=== PATIENT | female | born 1955 | race Caucasian/White ===

== ENCOUNTER 2016-10-16 08:04 | Inpatient (IN) | payer MEDICARE, BC ==
[2016-10-16] MEDS ORDERED: Metoclopramide IV* 5 MG/ML 2 ML VIAL IV ONE (08:50)
[2016-10-16] MEDS ORDERED: Morphine INJ* 4 MG/ML 1 ML CARPUJECT IV ONE (08:50)
[2016-10-16] MEDS ORDERED: NS 0.9% 1000 ML* 1,000 ML IV SCH ×2 (09:00→14:30)
[2016-10-16 09:15] LABS: Hematocrit 44 % (35-47); Hemoglobin 14.9 g/dl (12.0-16.0); Mean Corpuscular HGB Conc 34 g/dl (31-36); Mean Corpuscular Hemoglobin 32 pg (27-31); Mean Corpuscular Volume 94 fL (80-97); Mean Platelet Volume 7 um3 (7.4-10.4); Red Blood Count 4.72 10^6/ul (4.0-5.4); Red Cell Distribution Width 14 % (10.5-15)
--- NOTE | 2016-10-16 09:18 | RAD ---
INDICATION: Right splinting chest pain. COMPARISON: Comparison is made with a prior chest x-ray study from October 28, 2009. TECHNIQUE: A portable view of the chest was obtained. FINDINGS: Cardiac and mediastinal contours appear to be within normal limits. The lungs are clear. No pleural effusion or pneumothorax is seen. IMPRESSION: NO EVIDENCE FOR ACUTE DISEASE.
[2016-10-16 09:26] LABS: ALT 13 U/L (7-52); AST 16 U/L (13-39); Albumin 4.2 g/dL (3.2-5.2); Alkaline Phosphatase 73 U/L (34-104); Anion Gap 9 mmol/L (2-11); BUN/Creatinine Ratio 12.5 (8-20); Blood Urea Nitrogen 8 mg/dL (6-24); C Reactive Protein 82.64 mg/L (< 5.00); CO2 Carbon Dioxide 25 mmol/L (22-32); Calcium 9.5 mg/dL (8.6-10.3); Chloride 103 mmol/L (101-111); Creatine Kinase 77 U/L (10-223); EGFR African American 121.7 (>60); EGFR Non-African American 94.7 (>60); Globulin 3.2 g/dL (2-4); Glucose 121 mg/dL (70-100); Lipase < 10 U/L (11.0-82.0); Magnesium 2.2 mg/dL (1.9-2.7); Potassium 3.7 mmol/L (3.5-5.0); Sodium 137 mmol/L (133-145); Total Protein 7.4 g/dL (6.4-8.9)
[2016-10-16 09:29] LABS: Troponin I 0.02 ng/mL (<0.04)
[2016-10-16 09:39] LABS: TSH (Thyroid Stimulating Horm) 0.65 mcIU/mL (0.34-5.60)
[2016-10-16] MEDS ORDERED: Iohexol 350* (CONTRAST) 500 ML MDV IV ONE (10:12)
[2016-10-16 10:18] LABS: Urine Bacteria Absent (Absent)
[2016-10-16 10:19] LABS: Urine Bilirubin Negative (Negative); Urine Glucose Negative (Negative); Urine Nitrite Negative (Negative)
--- NOTE | 2016-10-16 10:32 | RAD ---
INDICATION: Right upper quadrant pain. COMPARISON: Comparison is made with a prior CT of the abdomen and pelvis from August 15, 2013. TECHNIQUE: Multiple real-time images of the right upper quadrant were obtained. FINDINGS: No gallstones are seen although there is a small area of increased echogenicity present within the gallbladder consistent with a polyp or sludge measuring approximately 5 mm in size. No gallbladder wall thickening or pericholecystic fluid is seen. No intrahepatic ductal distention is seen. There is distention of the common bile duct which measures approximately 0.9 cm in diameter. The liver is normal in size without significant focal abnormality. The pancreas is partially obscured by overlying bowel gas. The right kidney is normal in size without evidence for hydronephrosis. IMPRESSION: 1. PROBABLE GALLBLADDER POLYP LESS LIKELY ADHERENT SLUDGE. 2. DISTENTION OF THE COMMON BILE DUCT.
[2016-10-16] MEDS ORDERED: HYDROmorphone INJ* 1 MG/ML CARPUJECT SYRINGE IV ONE (10:57)
--- NOTE | 2016-10-16 11:00 | RAD ---
INDICATION: Right lower chest and right upper quadrant pain. COMPARISON: Comparison is made with a prior CT of the chest from October 09, 2004, prior CT of the abdomen and pelvis from August 15, 2013 and prior chest x-ray study from October 16, 2016. TECHNIQUE: A CT angiogram of the chest and a CT of the abdomen and pelvis was performed with intravenous contrast following intravenous injection of 63 ml of Omnipaque 350 nonionic contrast. Contiguous axial sections were obtained from the lung apices through the symphysis pubis. Images were reconstructed in the coronal and sagittal planes. FINDINGS: CT ANGIOGRAM OF THE CHEST: There is relatively homogeneous opacification of the pulmonary arteries. No intraluminal filling defect or pulmonary embolism is seen. The heart is within normal limits in size. No pericardial effusion is present. The thoracic aorta is normal in caliber and demonstrates homogeneous contrast opacification without evidence for dissection. No significant enlarged mediastinal or hilar lymph nodes are seen. There is moderate centrilobular emphysematous change. There is a small infiltrate present in the left upper lobe toward the lung base and a minimal right middle lobe infiltrate. There are small bilateral pulmonary nodules which are most prominent in both lower lobes measuring up to 5 mm in size which are unchanged from the prior CT of the chest. No pleural effusion or pneumothorax is seen. CT OF THE ABDOMEN AND PELVIS: The liver and spleen are normal in size without significant focal abnormality. No calcified gallstones are seen. There appears to be fatty infiltration of the pancreas which appears similar to the prior study. The kidneys and adrenal glands are normal in size. No hydronephrosis is seen. There is suggestion of a small 0.2 cm calculus in the lower pole of the left kidney. There is also a small 1.0 cm cyst in the lower pole of the left kidney. No hydronephrosis is seen. The abdominal aorta is normal in caliber. There is mild calcific plaque present. No significant enlarged retroperitoneal lymph nodes are seen. The stomach, small and large bowel appear nondistended. There is a small hiatal hernia present. The appendix appears nondistended although incompletely visualized on this study. There is moderate descending and sigmoid diverticulosis without evidence for diverticulitis. There is a small periumbilical hernia containing fat. The uterus is retroverted and normal in size. No free intraperitoneal air or fluid is seen. No significant focal osseous abnormality is seen. IMPRESSION: 1. NO EVIDENCE FOR PULMONARY EMBOLISM. 2. MINIMAL RIGHT MIDDLE LOBE AND LEFT UPPER LOBE INFILTRATES SUGGESTIVE OF ATELECTASIS LESS LIKELY PNEUMONIA. 3. MULTIPLE STABLE PULMONARY NODULES. 4. MODERATE CENTRILOBULAR EMPHYSEMATOUS CHANGE. 5. NO EVIDENCE FOR ACUTE FINDING IN THE ABDOMEN OR CAUSE FOR THE PATIENT'S ABDOMINAL PAIN IS SEEN. 6. SMALL NONOBSTRUCTING LEFT RENAL CALCULUS.
[2016-10-16] MEDS ORDERED: cefTRIAXone(*) 1 GM in NS 0.9% 50 ML* 50 ML IVPB ONE (11:55)
[2016-10-16] MEDS ORDERED: Albuterol/Ipratropium NEB.SOL* Albuterol 2.5 MG/Ipratropium 0.5 MG 3 ML INH ONE (11:55)
[2016-10-16] MEDS ORDERED: NS 0.9% 1000 ML* 1,000 ML IV ONE (11:56)
[2016-10-16] MEDS ORDERED: Levofloxacin 750 MG IVPREMIX(* 750 MG/150 ML BAG IVPB ONE (12:09)
[2016-10-16] MEDS ORDERED: cefTRIAXone VIAL(*) 1,000 MG in NS 0.9% 50 ML* 50 ML IVPB ONE (13:00)
[2016-10-16] MEDS ORDERED: Acetaminophen TAB* 325 MG ONE (13:49)
[2016-10-16] MEDS ORDERED: Acetaminophen TAB* 325 MG PO ONE (13:50)
--- NOTE | 2016-10-16 14:18 | ED ---
I, Kp,Otilio, scribed for Satniago Johnson MD on 10/16/16 at 0857 . HPI Chest Pain - HPI Summary HPI Summary: This 61 y/o female presents to ED for acute right sided chest pain since 1900 PM yesterday. Pain radiates to back and RUQ and worse with deep breath. Pt reports nausea, dry heaves, and STARR this morning. She also reports mild dyspnea due to pain with deep breath. PMHx includes HLD, HTN, RA, known migraine, vericose vein, and recent URI that pt states she "got over it". Pt denies any hx of cholecystectomy. 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 - History of Current Complaint Chief Complaint: EDChestPainROMI Hx Obtained From: Patient, Medical Records Timing: Constant Pain Intensity: 8 Pain Scale Used: 0-10 Numeric Chest Pain Location: Right Anterior Chest Pain Radiates: Yes Chest Pain Radiates To:: Back, Other - RUQ Character: Dull/Aching Aggravating Factor(s): Deep Breaths Alleviating Factor(s): Nothing Associated Signs and Symptoms: Positive: Chest Pain, Headaches, Nausea, Other: - dry heave - Allergy/Home Medications Allergies/Adverse Reactions: Allergies Allergy/AdvReac Type Severity Reaction Status Date / Time Ondansetron [From Zofran] Allergy Severe Headache Verified 10/07/16 09:21 Sulfa Antibiotics Allergy Severe Rash And Verified 10/07/16 09:21 Itching Tramadol AdvReac Severe SEIZURES Verified 10/07/16 09:21 Hydrochlorothiazide AdvReac Intermediate Hives Verified 10/07/16 09:21 PMH/Surg Hx/FS Hx/Imm Hx Endocrine/Hematology History: Denies: Hx Diabetes Cardiovascular History: Reports: Hx Hypertension, Other Cardiovascular Problems/ Disorders - vericose veins Denies: Hx Pacemaker/ICD Respiratory History: Reports: Hx Chronic Obstructive Pulmonary Disease (COPD), Other Respiratory Problems/Disorders - early COPD History: Reports: Hx Kidney Stones - in left kidney Denies: Hx Renal Disease Musculoskeletal History: Reports: Hx Arthritis - RA, Hx Rheumatoid Arthritis - 10+ YEARS, Hx Back Problems - right side low back pain on occassion with flare , Hx Bursitis, Hx Fibromyalgia, Hx Orthopedic Injury, Hx Osteoporosis, Other Musculoskeletal History - RA, right hip cortisone injection 02/28/15 Sensory History: Reports: Hx Contacts or Glasses Denies: Hx Hearing Aid Opthamlomology History: Reports: Hx Contacts or Glasses Neurological History: Reports: Hx Headaches, Hx Migraine, Hx Seizures - one r/t reaction to tramadol, Other Neuro Impairments/Disorders - FIBROMYALGIA Psychiatric History: Denies: Hx Panic Disorder - Surgical History Surgery Procedure, Year, and Place: RIGHT HIP REPLACEMENT DUE RA. Lt KNEE ARTHROSCOPE. VARICOSE VEIN right leg. kidney stone removal. tubal ligation. Cataract removed right eye 07/2016 Hx Anesthesia Reactions: No Infectious Disease History: No Infectious Disease History: Denies: Traveled Outside the [place] in Last 30 Days - Family History Known Family History: Positive: Other - Colon CA positive to mother and sister - Social History Alcohol Use: None Hx Substance Use: No Substance Use Type: Reports: None Substance Use Comment - Amount & Last Used: percocet Hx Tobacco Use: Yes Smoking Status (MU): Former Smoker Type: Cigarettes Amount Used/How Often: 2 ppd Length of Time of Smoking/Using Tobacco: 35 years Have You Smoked in the Last Year: No Review of Systems Negative: Fever Positive: Chest Pain - right sided Negative: Anxious, Depressed All Other Systems Reviewed And Are Negative: Yes Physical Exam Triage Information Reviewed: Yes Vital Signs On Initial Exam: Initial Vitals Temp Pulse Resp BP Pulse Ox 98.3 F 90 17 153/84 100 10/16/16 08:05 10/16/16 08:05 10/16/16 08:05 10/16/16 08:05 10/16/16 08:05 Vital Signs Reviewed: Yes Appearance: Positive: Pain Distress - moderate Skin: Positive: Warm, Dry Head/Face: Positive: Normal Head/Face Inspection Eyes: Positive: EOMI, HERO Respiratory/Lung Sounds: Positive: Clear to Auscultation - bilat, Breath Sounds Present Cardiovascular: Positive: RRR, Pulses are Symmetrical in both Upper and Lower Extremities Abdomen Description: Positive: Other: - RUQ tenderness Bowel Sounds: Positive: Hypoactive Musculoskeletal: Positive: Strength/ROM Intact Neurological: Positive: Sensory/Motor Intact, Alert, Oriented to Person Place, Time Psychiatric: Positive: Affect/Mood Appropriate AVPU Assessment: Alert - [place] Coma Scale Coma Scale Total: 15 Diagnostics - Vital Signs Vital Signs Temp Pulse Resp BP Pulse Ox 10/16/16 08:43 99.1 F 10/16/16 08:05 98.3 F 90 17 153/84 100 - Laboratory Lab Results: Lab Results 10/16/16 10/16/16 10/16/16 Range/Units 08:20 08:20 08:20 WBC 11.0 H (3.5-10.8) 10^3/ul RBC 4.72 (4.0-5.4) 10^6/ul Hgb 14.9 (12.0-16.0) g/dl Hct 44 (35-47) % MCV 94 (80-97) fL MCH 32 H (27-31) pg MCHC 34 (31-36) g/dl RDW 14 (10.5-15) % Plt Count 364 (150-450) 10^3/ul MPV 7 L (7.4-10.4) um3 Neut % (Auto) 84.9 H (38-83) % Lymph % (Auto) 7.9 L (25-47) % Logan % (Auto) 7.0 (1-9) % Eos % (Auto) 0 (0-6) % Baso % (Auto) 0.2 (0-2) % Absolute Neuts (auto) 9.3 H (1.5-7.7) 10^3/ul Absolute Lymphs (auto) 0.9 L (1.0-4.8) 10^3/ul Absolute Monos (auto) 0.8 (0-0.8) 10^3/ul Absolute Eos (auto) 0 (0-0.6) 10^3/ul Absolute Basos (auto) 0 (0-0.2) 10^3/ul Absolute Nucleated RBC 0 10^3/ul Nucleated RBC % 0 INR (Anticoag Therapy) 0.96 (0.89-1.11) APTT 34.2 (26.0-36.3) seconds Sodium 137 (133-145) mmol/L Potassium 3.7 (3.5-5.0) mmol/L Chloride 103 (101-111) mmol/L Carbon Dioxide 25 (22-32) mmol/L Anion Gap 9 (2-11) mmol/L BUN 8 (6-24) mg/dL Creatinine 0.64 (0.51-0.95) mg/dL Est GFR ( Amer) 121.7 (>60) Est GFR (Non-Af Amer) 94.7 (>60) BUN/Creatinine Ratio 12.5 (8-20) Glucose 121 H (70-100) mg/dL Lactic Acid (0.5-2.0) mmol/L Calcium 9.5 (8.6-10.3) mg/dL Magnesium 2.2 (1.9-2.7) mg/dL Total Bilirubin 1.00 (0.2-1.0) mg/dL AST 16 (13-39) U/L ALT 13 (7-52) U/L Alkaline Phosphatase 73 (34-104) U/L Total Creatine Kinase 77 (10-223) U/L CK-MB (CK-2) 2.5 (0.6-6.3) ng/mL Troponin I 0.02 (<0.04) ng/mL C-Reactive Protein 82.64 H (< 5.00) mg/L B-Natriuretic Peptide ( - 100) pg/mL Total Protein 7.4 (6.4-8.9) g/dL Albumin 4.2 (3.2-5.2) g/dL Globulin 3.2 (2-4) g/dL Albumin/Globulin Ratio 1.3 (1-3) Lipase < 10 L (11.0-82.0) U/L TSH 0.65 (0.34-5.60) mcIU/mL Urine Color Urine Appearance Urine pH (5-9) Ur Specific Stanton (1.010-1.030) Urine Protein (Negative) Urine Ketones (Negative) Urine Blood (Negative) Urine Nitrate (Negative) Urine Bilirubin (Negative) Urine Urobilinogen (Negative) Ur Leukocyte Esterase (Negative) Urine WBC (Auto) (Absent) Urine RBC (Auto) (Absent) Urine Bacteria (Absent) Urine Glucose (Negative) Urine Ascorbic Acid 10/16/16 10/16/16 10/16/16 Range/Units 08:20 08:20 10:05 WBC (3.5-10.8) 10^3/ul RBC (4.0-5.4) 10^6/ul Hgb (12.0-16.0) g/dl Hct (35-47) % MCV (80-97) fL MCH (27-31) pg MCHC (31-36) g/dl RDW (10.5-15) % Plt Count (150-450) 10^3/ul MPV (7.4-10.4) um3 Neut % (Auto) (38-83) % Lymph % (Auto) (25-47) % Logan % (Auto) (1-9) % Eos % (Auto) (0-6) % Baso % (Auto) (0-2) % Absolute Neuts (auto) (1.5-7.7) 10^3/ul Absolute Lymphs (auto) (1.0-4.8) 10^3/ul Absolute Monos (auto) (0-0.8) 10^3/ul Absolute Eos (auto) (0-0.6) 10^3/ul Absolute Basos (auto) (0-0.2) 10^3/ul Absolute Nucleated RBC 10^3/ul Nucleated RBC % INR (Anticoag Therapy) (0.89-1.11) APTT (26.0-36.3) seconds Sodium (133-145) mmol/L Potassium (3.5-5.0) mmol/L Chloride (101-111) mmol/L Carbon Dioxide (22-32) mmol/L Anion Gap (2-11) mmol/L BUN (6-24) mg/dL Creatinine (0.51-0.95) mg/dL Est GFR ( Amer) (>60) Est GFR (Non-Af Amer) (>60) BUN/Creatinine Ratio (8-20) Glucose (70-100) mg/dL Lactic Acid 1.0 (0.5-2.0) mmol/L Calcium (8.6-10.3) mg/dL Magnesium (1.9-2.7) mg/dL Total Bilirubin (0.2-1.0) mg/dL AST (13-39) U/L ALT (7-52) U/L Alkaline Phosphatase (34-104) U/L Total Creatine Kinase (10-223) U/L CK-MB (CK-2) (0.6-6.3) ng/mL Troponin I (<0.04) ng/mL C-Reactive Protein (< 5.00) mg/L B-Natriuretic Peptide 97 ( - 100) pg/mL Total Protein (6.4-8.9) g/dL Albumin (3.2-5.2) g/dL Globulin (2-4) g/dL Albumin/Globulin Ratio (1-3) Lipase (11.0-82.0) U/L TSH (0.34-5.60) mcIU/mL Urine Color Straw Urine Appearance Clear Urine pH 8.0 (5-9) Ur Specific Stanton 1.003 L (1.010-1.030) Urine Protein Negative (Negative) Urine Ketones Negative (Negative) Urine Blood Negative (Negative) Urine Nitrate Negative (Negative) Urine Bilirubin Negative (Negative) Urine Urobilinogen Negative (Negative) Ur Leukocyte Esterase Negative (Negative) Urine WBC (Auto) Absent (Absent) Urine RBC (Auto) Trace(0-2/hpf) (Absent) Urine Bacteria Absent (Absent) Urine Glucose Negative (Negative) Urine Ascorbic Acid Not Reportable Result Diagrams: 10/16/16 08:20 10/16/16 08:20 Lab Statement: Any lab studies that have been ordered have been reviewed, and results considered in the medical decision making process. - Radiology CXR Xray Interpretation: No Acute Changes - negative PTX Radiology Interpretation Completed By: ED Physician - CT CTA chest/abd/p CT Interpretation: Positive (See Comments) - 1. NO EVIDENCE FOR PULMONARY EMBOLISM. 2. MINIMAL RIGHT MIDDLE LOBE AND LEFT UPPER LOBE INFILTRATES SUGGESTIVE OF ATELECTASIS LESS LIKELY PNEUMONIA. 3. MULTIPLE STABLE PULMONARY NODULES. 4. MODERATE CENTRILOBULAR EMPHYSEMATOUS CHANGE. 5. NO EVIDENCE FOR ACUTE FINDING IN THE ABDOMEN OR CAUSE FOR THE PATIENT'S ABDOMINAL PAIN IS SEEN. CT Interpretation Completed By: Radiologist - EKG 0810 Cardiac Rate: NL EKG Rhythm: Sinus Rhythm ST Segment: Normal Ectopy: None EKG Interpretation: Flat T at III and aVF - Additional Comments Diagnostic Additional Comments: US Gallbladder -- 1. PROBABLE GALLBLADDER POLYP LESS LIKELY ADHERENT SLUDGE. 2. DISTENTION OF THE COMMON BILE DUCT. Re-Evaluation - Re-Evaluation First Eval Re-Evaluation Time: 10:53 Comment: in room to update pt on imaging results and bloodwork. Second Eval Re-Evaluation Time: 11:59 Comment: in room to update pt on CT imaging results. Third Eval Re-Evaluation Time: 14:07 Change: Worse Comment: Pt complaints of STARR. Chest Pain Course/Dx - Course Assessment/Plan: ADMIT HOSPITALIST STABLE. - Diagnoses Provider Diagnoses: Pneumonia, Chest pain - Provider Notifications Discussed Care Of Patient With: Riley Israel NP (Hospitalist) at 1408 PM Discharge - Discharge Plan Condition: Stable Disposition: ADMITTED TO [facility] Referrals: Miguel Lucas MD [Primary Care Provider] - The documentation as recorded by the Kp woods Soohyun accurately reflects the service I personally performed and the decisions made by me, Santiago Johnson MD.
[2016-10-16] MEDS ORDERED: SUMAtriptan SQ* 6 MG/0.5 ML VIAL SUBCUT ONE (14:27)
[2016-10-16] MEDS ORDERED: Ketorolac INJ* 30 MG/ML 1 ML VIAL IV PUSH ONE (14:27)
[2016-10-16] MEDS ORDERED: PROCHLORPERAZINE INJ 5 MG/ML 2 ML VIAL IV PRN (14:27)
[2016-10-16] MEDS ORDERED: Acetaminophen TAB* 325 MG PO PRN (14:27)
[2016-10-16] MEDS ORDERED: Albuterol 2.5 MG/3 ML NEB.SOL* (0.083%) INH PRN (14:27)
[2016-10-16] MEDS ORDERED: Levofloxacin 750 MG IVPREMIX(* 750 MG/150 ML BAG IVPB SCH (15:00)
[2016-10-16] MEDS: Albuterol/Ipratropium NEB.SOL* Albuterol 2.5 MG/Ipratropium 0.5 MG 3 ML INH SCH ×2 (15:00→19:07)
[2016-10-16] MEDS: oxyCODONE TAB* 5 MG TAB PO PRN ×2 (17:10→22:00)
--- NOTE | 2016-10-16 20:26 | HP ---
ATTENDING PHYSICIAN ADDENDUM NOW INCLUDED ON THIS REPORT HISTORY AND PHYSICAL: DATE OF ADMISSION: 10/16/16 PRIMARY CARE PROVIDER: Dr. Lucas. ATTENDING PHYSICIAN: Dr. Farheen Sarah *(report being dictated by Riley Israel NP) CHIEF COMPLAINT: 1. Chest pain. 2. Cough. HISTORY OF PRESENT ILLNESS: Mrs. Rivas is a 61-year-old female patient. She has a history of migraines, rheumatoid arthritis, hypertension, COPD, and a history of osteoporosis. She comes in today. Over the last 2 weeks, says she has not been feeling well. She started out returning from a dog show about 2 weeks ago. Her and the people that she was with all came down with similar symptoms. She started out with a cough that went to her nose. She said she started getting runny nose. No sore throat and then now she states that it settled down under her chest. She has noticed when she coughs, she feels rattling. It hurts for her to take a deep breath. Today, she could barely take a deep breath. She had pain on the right chest wall that radiated into the front of the chest, worse with taking a deep breath and said that it felt like razors whenever she took a breath, it was very sharp stabbing pain. She said she has been having chills off and on, but no documented fever. She said she had one episode of nausea and vomiting this morning, no abdominal pain and states that she has been feeling shortness of breath because it hurts to breathe. She was concerned because she was not getting any better, so she finally decided to seek care. She came into the ER today. They tried giving her antibiotics and pain medications down here but despite their best effort, she continued to have pain. She was feeling short of breath and because of her history of RA and the fact that she takes medications that are immunocompromising, the hospitalist service was asked to evaluate for admission. She denies having any other symptoms. PAST MEDICAL HISTORY: Significant for: 1. Migraines. 2. Rheumatoid arthritis. 3. Osteoporosis. 4. Hypertension. 5. COPD. PAST SURGICAL HISTORY: 1. She has had cataract extraction. 2. Left knee arthroscopy. 3. Right total hip arthroplasty. 4. Vein stripping. HOME MEDICATIONS: Include: 1. Rituxan 500 mg IV every 180 days. 2. Verapamil 360 mg daily. 3. Imitrex 6 mg subcu daily as needed. 4. Oxycodone 15 mg every 4 hours as needed. 5. Botox 100 mcg injections every 3 months. 6. Plaquenil 20 mg p.o. b.i.d. 7. Vitamin D 5000 units p.o. daily. 8. Fosamax 10 mg p.o. daily. ALLERGIES TO MEDICATIONS: Include ZOFRAN, SULFA, TRAMADOL, and HYDROCHLOROTHIAZIDE. FAMILY HISTORY: Her mother had a PE and colon cancer. Her father had a history of cirrhosis. SOCIAL HISTORY: She is a former smoker. She does not drink alcohol. She is . Surrogate decision maker is her . REVIEW OF SYSTEMS: There is no documented fever, but she does admit to having chills. There is no significant weight change. She denies having any double vision. There is no ear discharge. She denies having any rhinorrhea currently. She does admit to dyspnea particularly with exertion. There is chest pain from my HPI. She does admit to a cough. There is no abdominal pain. There was one episode of nausea and vomiting. No dysuria. No frequency. No loss of consciousness. No pruritus. No skin ulcerations. Review of 14 systems completed, all others negative. PHYSICAL EXAMINATION GENERAL: At this time, Mrs. Rivas is a 61-year-old female patient. She does not appear to be in any acute distress. She is sitting in the ER stretcher. She is awake and she is alert. VITAL SIGNS: Blood pressure 177/97 with a pulse of 91, respirations 18, O2 sat 96%, and a temperature of 99.1. HEENT: Head atraumatic and normocephalic. Eyes: EOMs are intact. Sclera anicteric, not pale. Throat: Oral mucosa appears to be dry. No oropharyngeal erythema. NECK: Supple. LUNGS: She had course rhonchi in the lower lobe. She had equal diaphragmatic expansion. There were no wheezes heard. HEART: Heart sounds S1 and S2. Regular rate and rhythm. No murmurs, rubs, or gallops. ABDOMEN: Soft, it was flat, nontender. Bowel sounds present. EXTREMITIES: Pulses were 2+ throughout. She is able to move all 4 extremities with 5/5 strength. SKIN: Intact. NEUROLOGIC: The patient is awake. She is alert. She is oriented x3. The tongue is midline. Records And Tape Recordings Engineer are equal. She had no gross focal deficits. LABORATORY DATA: The labs today revealed a WBC of 11.0, RBC of 4.72, hemoglobin of 14.9, hematocrit of 44, and platelet count of 364. The INR was 0.96, PTT of 34.2. Sodium was 137, potassium 3.7, chloride 103, bicarb 25, BUN 8 , creatinine 0.64, glucose 121, lactic 1.0, calcium 9.5, mag was 2.2, total bili was 1, AST 16, ALT 13, alk phos 73, CK 77, CK-MB 2.5, troponin 0.02, albumin of 4.2, lipase less than 10, TSH was normal. Urine was obtained, it was negative. She had multiple imaging in the ER. She had gallbladder ultrasound that showed probable gallbladder polyp, less likely adherent sludge, distention of the common bile duct. Chest, abdomen, and pelvis CT showed, impression: No evidence of pulmonary embolism, minimal right middle lobe and left upper lobe infiltrates suggestive of atelectasis, less likely pneumonia, multiple stable pulmonary nodules, moderate central lobular emphysematous change , no evidence for acute finding or cause of the patient's abdominal pain was seen, small nonobstructing left renal calculus. She had an EKG obtained today as well, which showed a normal sinus rhythm. She appeared to have LVH, rate of 88. No ST elevations or T-wave inversions were noted. Old medical records were reviewed. ASSESSMENT AND PLAN: Mr. Rivas is a 61-year-old female patient coming in to the ER today with complaints of cough and chest pain. Evaluation and the CTA did show concern for pneumonia. She will be admitted under observation status for: 1. Pneumonia. I suspect this is the cause for chest pain and she may have pleurisy. The pain is very pruritic. I am going to go ahead and give her a dose of Toradol. In addition to this, we will go ahead and put her on a p.r.n. oxycodone as prescribed, p.r.n. Tylenol for pain. I will put her on Levaquin nebs every 6 hours while awake, Twin. In addition to this, also put her on p.r.n. albuterol and we will try to get sputum culture, flu swab, and legionella and Strep and pneumo urine antigens and we will continue to monitor her. 2. Rheumatoid arthritis. Continue meds as prescribed with the exception we will need to hold her Rituxan until she is over this. She can follow with Dr. French for this. 3. Osteoporosis, continue meds as prescribed. 4. Migraine. She does have a headache now. This is similar to her previous migraine, so I am going to go ahead and give her a dose of her Imitrex that she normally takes. 5. Chronic obstructive pulmonary disease. She is not wheezing but I am going to put her on nebs every 6 hours while awake, Dulera. No steroids of yet and we will monitor. 6. Hypertension. Continue her verapamil. 7. Code status. She is full code. 8. Fluid, electrolyte, nutrition. She can have a regular diet. 9. DVT prophylaxis. She will be placed on heparin subcu. TIME SPENT: Time spent on the admission was 60 minutes, greater than half the time spent [id number] with the patient obtaining my history and physical, other half the time was spent going over the plan of care with the patient and implementing the plan of care. I did discuss the plan of care with my attending ; Dr. Sarah; she is in agreement. RILEY ISRAEL NP ADDENDUM: Alice Rivas is a 61-year-old female with a history of rheumatoid arthritis, on immunosuppressants chronically, who presents to the hospital with pneumonia. The patient is going to be admitted to the medical floor. For further details of the patient's presentation and plan, please see history and physical dictated by Riley Israel NP, on 10/16/16 with which I agree. FARHEEN SARAH MD CC: Dr. Lucas* [id number]/[facility] #: [id number] [id number]/[facility]PS #: [id number] SAM
[2016-10-16] MEDS: Mometasone/Formoter 200/5 MDI INH SCH (20:44)
--- NOTE | 2016-10-16 21:48 | HP ---
HISTORY AND PHYSICAL:* ADDENDUM: Alice Rivas is a 61-year-old female with a history of rheumatoid arthritis, on immunosuppressants chronically, who presents to the hospital with pneumonia. The patient is going to be admitted to the medical floor. For further details of the patient's presentation and plan, please see history and physical dictated by Riley Israel NP, on 10/16/16 with which I agree. [id number]/[facility] #: [id number] MTDD
[2016-10-16] MEDS: Hydroxychloroquine TAB* 200 MG PO SCH (22:00)
[2016-10-16] MEDS: Heparin VIAL(*) 5000 UNITS/ML VIAL (FIVE THOUSAND) SUBCUT SCH (22:01)
[2016-10-16] MEDS ORDERED: SUMAtriptan SQ* 6 MG/0.5 ML VIAL SUBCUT PRN (22:10)
[2016-10-17] MEDS: Albuterol/Ipratropium NEB.SOL* Albuterol 2.5 MG/Ipratropium 0.5 MG 3 ML INH SCH ×3 (01:47→07:24)
[2016-10-17 05:46] LABS: Hematocrit 37 % (35-47); Hemoglobin 12.7 g/dl (12.0-16.0); Mean Corpuscular HGB Conc 34 g/dl (31-36); Mean Corpuscular Hemoglobin 32 pg (27-31); Mean Corpuscular Volume 94 fL (80-97); Mean Platelet Volume 7 um3 (7.4-10.4); Red Blood Count 3.98 10^6/ul (4.0-5.4); Red Cell Distribution Width 14 % (10.5-15); White Blood Count 4.6 10^3/ul (3.5-10.8)
[2016-10-17 05:56] LABS: BUN/Creatinine Ratio 11.3 (8-20); Calcium 8.8 mg/dL (8.6-10.3); EGFR African American 151.3 (>60); EGFR Non-African American 117.7 (>60); Potassium 3.5 mmol/L (3.5-5.0)
[2016-10-17] MEDS: oxyCODONE TAB* 5 MG TAB PO PRN ×4 (06:07→18:58)
[2016-10-17] MEDS: Heparin VIAL(*) 5000 UNITS/ML VIAL (FIVE THOUSAND) SUBCUT SCH ×3 (06:08→21:10)
[2016-10-17] MEDS: Mometasone/Formoter 200/5 MDI INH SCH (07:24)
--- NOTE | 2016-10-17 09:33 | PN ---
Subjective Date of Service: 10/17/16 Interval History: Pt is feeling better but still having SOB and pain with exertion. She is worried that she will try to do too much if she goes home. Objective Active Medications: Acetaminophen (Tylenol Tab*) 650 mg PO Q4H PRN PRN Reason: FEVER/PAIN Albuterol (Ventolin 2.5 Mg/3 Ml Neb.Rose*) 2.5 mg INH Q2H PRN PRN Reason: SOB/WHEEZING Heparin Sodium (Porcine) (Heparin Vial(*)) 5,000 units SUBCUT Q8HR [facility] Last Admin: 10/17/16 06:08 Dose: 5,000 units Hydroxychloroquine Sulfate (Plaquenil Tab*) 200 mg PO BID [facility] Last Admin: 10/16/16 22:00 Dose: 200 mg Levofloxacin/Dextrose (Levaquin 750 Mg Ivpremix(*)) 750 mg in 150 mls @ 100 mls /hr IVPB 1300 [facility] Mometasone Furoate/Formoterol Fumar (Dulera 200/5 Mdi*) 2 puff INH BID [facility] Last Admin: 10/17/16 07:24 Dose: 2 puff Oxycodone HCl (Roxycodone Tab*) 15 mg PO Q4H PRN PRN Reason: PAIN Last Admin: 10/17/16 06:07 Dose: 15 mg Prochlorperazine Edisylate (Compazine Inj*) 5 mg IV Q6H PRN PRN Reason: NAUSEA/VOMITING Sumatriptan Succinate (Imitrex Sq*) 6 mg SUBCUT DAILY PRN PRN Reason: HEADACHE Last Admin: 10/16/16 23:56 Dose: 6 mg Verapamil HCl (Calan Sr Cap*) 360 mg PO DAILY [facility] Vital Signs 10/16/16 10/16/16 10/16/16 14:47 14:50 15:00 Temperature Pulse Rate 75 Respiratory 20 21 Rate Blood Pressure 159/79 168/89 (mmHg) O2 Sat by Pulse 96 Oximetry 10/16/16 10/16/16 10/16/16 15:30 15:33 15:44 Temperature Pulse Rate 77 Respiratory 20 12 Rate Blood Pressure 149/79 147/84 (mmHg) O2 Sat by Pulse 91 Oximetry 10/16/16 10/16/16 10/16/16 16:41 16:49 17:10 Temperature 98.3 F Pulse Rate 74 Respiratory 20 20 20 Rate Blood Pressure 156/83 (mmHg) O2 Sat by Pulse 97 Oximetry 10/16/16 10/16/16 10/16/16 19:08 19:10 20:08 Temperature 97.5 F Pulse Rate 64 74 Respiratory 16 16 16 Rate Blood Pressure 152/72 (mmHg) O2 Sat by Pulse 95 97 Oximetry 10/16/16 10/16/16 10/16/16 21:00 22:00 23:41 Temperature 97.9 F Pulse Rate 73 Respiratory 20 20 18 Rate Blood Pressure 150/89 (mmHg) O2 Sat by Pulse 98 Oximetry 10/17/16 10/17/16 10/17/16 00:00 03:37 06:07 Temperature 97.8 F Pulse Rate 66 Respiratory 20 16 16 Rate Blood Pressure 148/87 (mmHg) O2 Sat by Pulse 96 Oximetry 10/17/16 10/17/16 07:25 07:55 Temperature 97.5 F Pulse Rate 67 81 Respiratory 14 18 Rate Blood Pressure 163/79 (mmHg) O2 Sat by Pulse 97 99 Oximetry Oxygen Devices in Use Now: None Appearance: Middle aged female sitting up in bed, NAD Eyes: No Scleral Icterus Ears/Nose/Mouth/Throat: Mucous Membranes Moist Respiratory: Symmetrical Chest Expansion and Respiratory Effort, Clear to Auscultation Cardiovascular: NL Sounds; No Murmurs; No JVD, RRR, No Edema Abdominal: NL Sounds; No Tenderness; No Distention Extremities: No Clubbing, Cyanosis Skin: No Rash or Ulcers, No Nodules or Sclerosis Neurological: Alert and Oriented x 3 Result Diagrams: 10/17/16 05:07 10/17/16 05:07 Additional Lab and Data: Lab Results 10/16/16 10/16/16 10/16/16 Range/Units 08:20 08:20 08:20 WBC 11.0 H (3.5-10.8) 10^3/ul RBC 4.72 (4.0-5.4) 10^6/ul Hgb 14.9 (12.0-16.0) g/dl Hct 44 (35-47) % MCV 94 (80-97) fL MCH 32 H (27-31) pg MCHC 34 (31-36) g/dl RDW 14 (10.5-15) % Plt Count 364 (150-450) 10^3/ul MPV 7 L (7.4-10.4) um3 Neut % (Auto) 84.9 H (38-83) % Lymph % (Auto) 7.9 L (25-47) % [place] % (Auto) 7.0 (1-9) % Eos % (Auto) 0 (0-6) % Baso % (Auto) 0.2 (0-2) % Absolute Neuts (auto) 9.3 H (1.5-7.7) 10^3/ul Absolute Lymphs (auto) 0.9 L (1.0-4.8) 10^3/ul Absolute Monos (auto) 0.8 (0-0.8) 10^3/ul Absolute Eos (auto) 0 (0-0.6) 10^3/ul Absolute Basos (auto) 0 (0-0.2) 10^3/ul Absolute Nucleated RBC 0 10^3/ul Nucleated RBC % 0 INR (Anticoag Therapy) 0.96 (0.89-1.11) APTT 34.2 (26.0-36.3) seconds Sodium 137 (133-145) mmol/L Potassium 3.7 (3.5-5.0) mmol/L Chloride 103 (101-111) mmol/L Carbon Dioxide 25 (22-32) mmol/L Anion Gap 9 (2-11) mmol/L BUN 8 (6-24) mg/dL Creatinine 0.64 (0.51-0.95) mg/dL Est GFR ( Amer) 121.7 (>60) Est GFR (Non-Af Amer) 94.7 (>60) BUN/Creatinine Ratio 12.5 (8-20) Glucose 121 H (70-100) mg/dL Lactic Acid (0.5-2.0) mmol/L Calcium 9.5 (8.6-10.3) mg/dL Magnesium 2.2 (1.9-2.7) mg/dL Total Bilirubin 1.00 (0.2-1.0) mg/dL AST 16 (13-39) U/L ALT 13 (7-52) U/L Alkaline Phosphatase 73 (34-104) U/L Total Creatine Kinase 77 (10-223) U/L CK-MB (CK-2) 2.5 (0.6-6.3) ng/mL Troponin I 0.02 (<0.04) ng/mL C-Reactive Protein 82.64 H (< 5.00) mg/L B-Natriuretic Peptide ( - 100) pg/mL Total Protein 7.4 (6.4-8.9) g/dL Albumin 4.2 (3.2-5.2) g/dL Globulin 3.2 (2-4) g/dL Albumin/Globulin Ratio 1.3 (1-3) Lipase < 10 L (11.0-82.0) U/L TSH 0.65 (0.34-5.60) mcIU/mL Urine Color Urine Appearance Urine pH (5-9) Ur Specific [place] (1.010-1.030) Urine Protein (Negative) Urine Ketones (Negative) Urine Blood (Negative) Urine Nitrate (Negative) Urine Bilirubin (Negative) Urine Urobilinogen (Negative) Ur Leukocyte Esterase (Negative) Urine WBC (Auto) (Absent) Urine RBC (Auto) (Absent) Urine Bacteria (Absent) Urine Glucose (Negative) Urine Ascorbic Acid 10/16/16 10/16/16 10/16/16 Range/Units 08:20 08:20 10:05 WBC (3.5-10.8) 10^3/ul RBC (4.0-5.4) 10^6/ul Hgb (12.0-16.0) g/dl Hct (35-47) % MCV (80-97) fL MCH (27-31) pg MCHC (31-36) g/dl RDW (10.5-15) % Plt Count (150-450) 10^3/ul MPV (7.4-10.4) um3 Neut % (Auto) (38-83) % Lymph % (Auto) (25-47) % [place] % (Auto) (1-9) % Eos % (Auto) (0-6) % Baso % (Auto) (0-2) % Absolute Neuts (auto) (1.5-7.7) 10^3/ul Absolute Lymphs (auto) (1.0-4.8) 10^3/ul Absolute Monos (auto) (0-0.8) 10^3/ul Absolute Eos (auto) (0-0.6) 10^3/ul Absolute Basos (auto) (0-0.2) 10^3/ul Absolute Nucleated RBC 10^3/ul Nucleated RBC % INR (Anticoag Therapy) (0.89-1.11) APTT (26.0-36.3) seconds Sodium (133-145) mmol/L Potassium (3.5-5.0) mmol/L Chloride (101-111) mmol/L Carbon Dioxide (22-32) mmol/L Anion Gap (2-11) mmol/L BUN (6-24) mg/dL Creatinine (0.51-0.95) mg/dL Est GFR ( Amer) (>60) Est GFR (Non-Af Amer) (>60) BUN/Creatinine Ratio (8-20) Glucose (70-100) mg/dL Lactic Acid 1.0 (0.5-2.0) mmol/L Calcium (8.6-10.3) mg/dL Magnesium (1.9-2.7) mg/dL Total Bilirubin (0.2-1.0) mg/dL AST (13-39) U/L ALT (7-52) U/L Alkaline Phosphatase (34-104) U/L Total Creatine Kinase (10-223) U/L CK-MB (CK-2) (0.6-6.3) ng/mL Troponin I (<0.04) ng/mL C-Reactive Protein (< 5.00) mg/L B-Natriuretic Peptide 97 ( - 100) pg/mL Total Protein (6.4-8.9) g/dL Albumin (3.2-5.2) g/dL Globulin (2-4) g/dL Albumin/Globulin Ratio (1-3) Lipase (11.0-82.0) U/L TSH (0.34-5.60) mcIU/mL Urine Color Straw Urine Appearance Clear Urine pH 8.0 (5-9) Ur Specific [place] 1.003 L (1.010-1.030) Urine Protein Negative (Negative) Urine Ketones Negative (Negative) Urine Blood Negative (Negative) Urine Nitrate Negative (Negative) Urine Bilirubin Negative (Negative) Urine Urobilinogen Negative (Negative) Ur Leukocyte Esterase Negative (Negative) Urine WBC (Auto) Absent (Absent) Urine RBC (Auto) Trace(0-2/hpf) (Absent) Urine Bacteria Absent (Absent) Urine Glucose Negative (Negative) Urine Ascorbic Acid Not Reportable Microbiology and Other Data: Microbiology 10/16/16 15:00 Nasal Screen MRSA (PCR)([facility]) - Final Nasal Mrsa Negative Influenza Types A,B Antigen ([facility]) - Final Specimen received for Influenza A/B Molecular testing Assess/Plan/Problems-Billing Ms Rivas is a 61 yo F who has a h/o rheumatoid arthritis, HTN and COPD who presented to the ER with c/o cough and chest pain and was admitted for treatment of a community acquired pneumonia. - Patient Problems (1) Community acquired bacterial pneumonia Current Visit: Yes Status: Acute Code(s): J15.9 - UNSPECIFIED BACTERIAL PNEUMONIA SNOMED Code(s): 747756269 Comment: So far influenza, s pneumoniae and legionella urinary antigens have been negative. No sputum sample has been sent to the lab. Continue levaquin IV x1 more day due to persistent SOB and pain with exertion. She will be ready for home tomorrow. Stop standing nebs as she is not wheezy. (2) Rheumatoid arthritis Current Visit: Yes Status: Acute Code(s): M06.9 - RHEUMATOID ARTHRITIS, UNSPECIFIED SNOMED Code(s): 72337324 Comment: Continue plaquenil but she will discuss with Dr. French about holding her rituxan. Continue prn oxycodone. (3) COPD (chronic obstructive pulmonary disease) Current Visit: Yes Status: Acute Code(s): J44.9 - CHRONIC OBSTRUCTIVE PULMONARY DISEASE, UNSPECIFIED SNOMED Code(s): 25851170 Comment: Continue prn nebs. Stop standing nebs and dulera as I do not think she will benefit from this medication. (4) HTN (hypertension) Current Visit: Yes Status: Acute Code(s): I10 - ESSENTIAL (PRIMARY) HYPERTENSION SNOMED Code(s): 00929555 Comment: BP is moderately elevated. Add lisinopril to her medication regimen and monitor her BP. (5) DVT prophylaxis Current Visit: Yes Status: Acute Code(s): JCP2506 - SNOMED Code(s): 900441967 Comment: SQ heparin (6) Full code status Current Visit: Yes Status: Acute Code(s): Z78.9 - OTHER SPECIFIED HEALTH STATUS SNOMED Code(s): 336265105
[2016-10-17] MEDS: Hydroxychloroquine TAB* 200 MG PO SCH ×2 (10:42→21:10)
[2016-10-17] MEDS: Verapamil SR CAP* 180 MG PO SCH (10:42)
[2016-10-17] MEDS: Lisinopril TAB* 5 MG PO SCH (10:42)
[2016-10-17] MEDS ORDERED: Levofloxacin 750 MG IVPREMIX(* 750 MG/150 ML BAG IVPB SCH (13:00)
[2016-10-18] MEDS: oxyCODONE TAB* 5 MG TAB PO PRN ×2 (02:02→08:49)
[2016-10-18] MEDS: Heparin VIAL(*) 5000 UNITS/ML VIAL (FIVE THOUSAND) SUBCUT SCH (05:37)
[2016-10-18 07:42] VITALS: BP 149/75
[2016-10-18] MEDS: Verapamil SR CAP* 180 MG PO SCH (08:48)
[2016-10-18] MEDS: Hydroxychloroquine TAB* 200 MG PO SCH (08:48)
[2016-10-18] MEDS: Lisinopril TAB* 5 MG PO SCH (08:48)
--- NOTE | 2016-10-19 10:51 | DS ---
DISCHARGE SUMMARY: DATE OF ADMISSION: 10/16/16 DATE OF DISCHARGE: 10/18/16 PRIMARY CARE PROVIDER: Dr. Lucas. BRAINER: Dr. French. DISCHARGING PROVIDER: BRENDEN Borges. SUPERVISING PHYSICIAN: Dr. Kendall Barger.* (DICTATED BY BRENDEN BORGES) PRIMARY DISCHARGE DIAGNOSIS: Pneumonia. SECONDARY DISCHARGE DIAGNOSES: 1. Rheumatoid arthritis under the care of Dr. French with Rituxan infusion - next infusion scheduled tomorrow, this will be delayed. 2. Chronic obstructive pulmonary disease without severe exacerbation. 3. Hypertension - lisinopril added to her home antihypertensive regimen. DISCHARGE MEDICATIONS: 1. Alendronate 10 p.o. weekly. 2. Vitamin D 5000 units p.o. daily. 3. Plaquenil 200 mg p.o. b.i.d. 4. Levaquin 750 mg p.o. daily x7 days. 5. Lisinopril 5 mg p.o. daily. 6. Botox injections every 3 months. 7. Oxycodone 15 mg p.o. q.4 hours as needed for pain. 8. Imitrex 6 mg subcu daily as needed for migraine headache. 9. Verapamil 360 mg p.o. daily. 10. Rituxan infusions per Dr. French. MEDICATION CHANGES: 1. Levaquin x7 days. 2. Lisinopril. HOSPITAL IMAGIN. Chest x-ray, 10/16/16, shows no acute process. 2. CT of the chest, abdomen, and pelvis shows moderate emphysematous changes and a small infiltrate in the left upper lobe as well as right middle lobe. There are small pulmonary nodules in both lower lobes measuring up to 5 mm in size, unchanged from prior, no effusions appreciated. No PE. No acute findings within the abdomen and pelvis. 3. Ultrasound of the gallbladder shows probable gallbladder polyp less likely to be adherent sludge and common bile duct of 9 mm in diameter. HOSPITAL COURSE: This is a 61-year-old female with a history of rheumatoid arthritis, COPD, and hypertension, who presented with complaints of chest pain and cough. She had not been feeling well for approximately 2 weeks before presenting to the emergency department. Her cough was productive and had some associated pleuritic chest pain. She had intermittent chills, no documented fever. One episode of nausea and vomiting prior to admission. She is on Rituxan infusions for treatment of her rheumatoid arthritis and under the care of Dr. French. No other recent hospitalization for acute infection. The patient had mild leukocytosis with a white blood cell count of 11,000 at the time of admission. Comprehensive metabolic panel was unremarkable and CRP was elevated to 82.64. Urinalysis was unremarkable. Influenza testing was negative. Initial chest x-ray showed no acute changes. CTA of the chest, abdomen, and pelvis was performed, which did show a small infiltrate versus atelectasis. No evidence for PE or other acute findings. The patient was treated for community acquired pneumonia with levofloxacin. The patient had a maximum temperature of 100.4 degrees Fahrenheit during her hospital stay. She was noted also to be moderately hypertensive throughout her hospital stay and lisinopril was started, which seemed to control her blood pressure well without any adverse effects. The patient's generalized malaise and complaints of cough improved throughout her hospital stay as did her energy. The patient was nearly asymptomatic at the time of discharge. DISPOSITION: The patient is being discharged to home with additional antibiotics as described above. Lisinopril has been added for hypertension management. Recommend close followup with her primary care provider. She is scheduled tomorrow for her usual Rituxan infusion. She has called and canceled her appointment with Dr. French's office and will follow up with him in regards to appropriate timing of her next infusion after she has recovered from this acute infection. BRENDEN BORGES CC: Dr. Lucas; Dr. French* [id number]/[facility] #: [id number] [facility]
== END 2016-10-18 11:40 | disposition home or self-care (01) | DRG 195 ==
LOC: ED 08:04 → MED 14:24 → OBSVTOIN 10-17 09:24
PROVIDERS: ADMIT Internal Medicine; ATTEND Hospitalist
DX: J15.9 Unspecified bacterial pneumonia (principal); J44.9 Chronic obstructive pulmonary disease, unspecified; I10 Essential (primary) hypertension; E78.5 Hyperlipidemia, unspecified; M06.9 Rheumatoid arthritis, unspecified; G43.909 Migraine, unspecified, not intractable, without status migrainosus; Z88.5 Allergy status to narcotic agent; Z88.2 Allergy status to sulfonamides; Z88.8 Allergy status to other drugs, medicaments and biological substances; Z87.442 Personal history of urinary calculi; M81.0 Age-related osteoporosis without current pathological fracture; M79.7 Fibromyalgia; Z96.641 Presence of right artificial hip joint; Z98.51 Tubal ligation status; Z98.41 Cataract extraction status, right eye; Z80.0 Family history of malignant neoplasm of digestive organs; Z87.891 Personal history of nicotine dependence; K82.4 Cholesterolosis of gallbladder
CPT/HCPCS: 36415; 71010; 71275; 74177; 76705; 80048; 80053; 81003; 82550; 82553; 83605; 83690; 83735; 83880; 84443; 84484; 85025; 85610; 85730; 86140; 87040; 87502; 87641; 87899; 93005; 94640; 94760; A9270-GY; J0696; J1170; J1644; J1885; J2270; J2765; J3030; Q9967

== ENCOUNTER 2017-07-26 11:11 | Emergency (ER) | payer MEDICARE, BC ==
[2017-07-26 11:27] VITALS: BP 123/72
--- NOTE | 2017-07-26 11:31 | UC ---
Skin Complaint HPI - HPI Summary HPI Summary: Pt presents with pain, redness, and swelling to right inner thigh. She tells me that about 3 days ago she developed mild pain and redness in the area. Since that time she has noticed the pain and redness progress in addition to swelling around the area. She denies recent trauma, however she is currently getting infusions at the infusion center for her Rheumatoid Arthritis. She says that she has had phlebitis in the past and thinks this is the same. Denies fever, chills, SOB, chest pain, headache, dizziness, calf pain, recent travel, or recent injury. - History of Current Complaint Chief Complaint: UCLowerExtremity Time Seen by Provider: 07/26/17 11:31 Stated Complaint: PHLEBITIS IN R LEG Hx Obtained From: Patient Onset/Duration: Gradual Onset Skin Exposure Onset/Duration: Days Ago Onset Severity: Mild Current Severity: Moderate - Allergy/Home Medications Allergies/Adverse Reactions: Allergies Allergy/AdvReac Type Severity Reaction Status Date / Time Ondansetron [From Zofran] Allergy Severe Headache Verified 07/26/17 11:27 Sulfa Antibiotics Allergy Severe Rash And Verified 07/26/17 11:27 Itching Tramadol AdvReac Severe SEIZURES Verified 07/26/17 11:27 Hydrochlorothiazide AdvReac Intermediate Hives Verified 07/26/17 11:27 Home Medications: Home Medications Calcium 500 mg PO BID 07/26/17 [History Confirmed 07/26/17] Review of Systems Constitutional: Negative Skin: Other - Redness, pain, swelling right inner thigh Respiratory: Negative Cardiovascular: Negative Neurological: Negative Psychological: Negative All Other Systems Reviewed And Are Negative: Yes PMH/Surg Hx/FS Hx/Imm Hx - Additional Past Medical History Additional PMH: Rheumatoid Arthritis Previously Healthy: Yes Endocrine History: Dyslipidemia Cardiovascular History: Hypertension Neurological History: Other Other Neurological History: Chronic headaches - Surgical History Surgical History: Yes Surgery Procedure, Year, and Place: tubal,left knee scope, right totla hip, kidney stone removal, vericose veins,cataract righyt - Family History Known Family History: Positive: Other - Colon CA positive to mother and sister - Social History Alcohol Use: None Substance Use Type: None Substance Use Comment - Amount & Last Used: percocet Smoking Status (MU): Former Smoker Type: Cigarettes Amount Used/How Often: 2 ppd Length of Time of Smoking/Using Tobacco: 35 years Have You Smoked in the Last Year: No When Did the Patient Quit Smoking/Using Tobacco: 2001 Household Exposure Type: Cigarettes - Immunization History Most Recent Influenza Vaccination: 06/2017 Most Recent Tetanus Shot: unknown Most Recent Pneumonia Vaccination: within last 5 years Physical Exam Triage Information Reviewed: Yes Appearance: Well-Appearing, Well-Nourished Vital Signs: Initial Vital Signs Temp 98.6 F 07/26/17 11:22 Pulse 79 07/26/17 11:22 Resp 18 07/26/17 11:22 BP 123/72 07/26/17 11:22 Pulse Ox 95 07/26/17 11:22 Vital Signs Reviewed: Yes Neck: Positive: Supple, Nontender, No Lymphadenopathy Respiratory: Positive: Chest non-tender, Lungs clear, Normal breath sounds, No respiratory distress, No accessory muscle use Cardiovascular: Positive: RRR, No Murmur, Pulses Normal - UEs and LEs including dorsalis pedis., Brisk Capillary Refill - LEs b/l Musculoskeletal: Positive: Strength Intact - B/L LEs, ROM Intact - B/L LEs, Other: - Negative Laith sign right LE. Neurological: Positive: Alert Psychological: Positive: Age Appropriate Behavior Skin: Positive: Other - There is an area of erythema, pain, induration, and edema approx 10-11cm in diameter on the right medial distal thigh. There is no streaking, drainage, or open wounds. Course/Dx - Course Course Of Treatment: Phlebitis vs DVT. I discussed with the patient that she requires an ultrasound to rule out a DVT as a potential cause of her symptoms. This facility does not have ultrasound capabilities at this time. I advised her to seek further treatment in the ED. I suggested that she go by ambulance in case her symptoms worsened or she began to have SOB or chest pain en route - she declined and opted to go by private vehicle. - Diagnoses Provider Diagnoses: Right thigh pain. Right thigh swelling. Right thigh redness Discharge - Discharge Plan Condition: Stable Disposition: HOME Referrals: Miguel Lucas MD [Primary Care Provider] - Additional Instructions: The provider that examined you today recommended that you seek further evaluation in the Emergency Department for your right leg pain, swelling, and redness.
== END 2017-07-26 11:43 | disposition home or self-care (01) ==
LOC: UCEAST 11:11
DX: M79.651 Pain in right thigh (principal); R22.41 Localized swelling, mass and lump, right lower limb; L53.9 Erythematous condition, unspecified; M06.9 Rheumatoid arthritis, unspecified; I10 Essential (primary) hypertension; Z87.891 Personal history of nicotine dependence; Z88.8 Allergy status to other drugs, medicaments and biological substances; Z88.2 Allergy status to sulfonamides; Z88.5 Allergy status to narcotic agent
CPT/HCPCS: 99211; G0463

== ENCOUNTER 2017-07-26 12:03 | Emergency (ER) | payer MEDICARE, BC ==
[2017-07-26 12:08] VITALS: BP 125/77
== END 2017-07-26 13:50 | disposition left against medical advice (07) ==
LOC: ED 12:03
DX: R60.0 Localized edema (principal); R21 Rash and other nonspecific skin eruption; Z53.21 Procedure and treatment not carried out due to patient leaving prior to being seen by health care provider

== ENCOUNTER 2017-09-21 08:20 | Emergency (ER) | payer MEDICARE, BC ==
[2017-09-21] MEDS ORDERED: NS 0.9% 1000 ML* 1,000 ML IV ONE (08:51)
[2017-09-21] MEDS ORDERED: Metoclopramide IV* 5 MG/ML 2 ML VIAL IV ONE (08:52)
[2017-09-21] MEDS ORDERED: Morphine INJ* 4 MG/ML 1 ML CARPUJECT IV ONE (08:52)
[2017-09-21 09:07] LABS: ABS Basophils 0.1 10^3/ul (0-0.2); ABS Eosinophils 0.1 10^3/ul (0-0.6); ABS Lymphocytes 1.2 10^3/ul (1.0-4.8); ABS Monocytes 0.8 10^3/ul (0-0.8); ABS Neutrophils 3.6 10^3/ul (1.5-7.7); ABS Nucleated RBC 0 10^3/ul; Eosinophil % 1.3 % (0-6); Hematocrit 40 % (35-47); Hemoglobin 13.5 g/dl (12.0-16.0); Lymphocyte % 21.1 % (25-47); Mean Corpuscular HGB Conc 34 g/dl (31-36); Mean Corpuscular Hemoglobin 32 pg (27-31); Mean Corpuscular Volume 93 fL (80-97); Mean Platelet Volume 7 um3 (7.4-10.4); Nucleated Red Blood Cells % 0.1; Platelet Count 225 10^3/ul (150-450); Red Blood Count 4.27 10^6/ul (4.0-5.4); Red Cell Distribution Width 14 % (10.5-15); White Blood Count 5.7 10^3/ul (3.5-10.8)
[2017-09-21] MEDS ORDERED: fentaNYL* 50 MCG/ML 2 ML VIAL (100 MCG VIAL) IV SLOW PU ONE (09:49)
[2017-09-21 09:50] LABS: Urine Appearance Clear; Urine Blood Negative (Negative); Urine Color Straw; Urine Ketones Negative (Negative); Urine Protein Negative (Negative); Urine Specific Gravity 1.001 (1.010-1.030); Urine Urobilinogen Negative (Negative)
--- NOTE | 2017-09-21 10:35 | RAD ---
INDICATION: LEFT pelvic groin area abscess versus reactive lymph node. Technique: LEFT pelvic groin region pain. Question abscess versus reactive lymph node. REPORT AND IMPRESSION: Soft tissue edema with heterogeneous echotexture evident subjacent to the LEFT groin region of skin redness and clinical concern. No loculated abscess collection evident. No hernia visualized. Two LEFT inguinal lymph nodes lateral to the region of skin redness are visualized within normal size limits measuring up to 1.4 x 0.6 x 0.6 and 0.6 x 0.4 x 0.5 cm.
[2017-09-21] MEDS ORDERED: cefTRIAXone(*) 1 GM in NS 0.9% 50 ML* 50 ML IVPB ONE (10:57)
[2017-09-21] MEDS ORDERED: Ketorolac INJ* 30 MG/ML 1 ML VIAL IV PUSH ONE (10:57)
[2017-09-21 11:11] VITALS: BP 113/67
[2017-09-21] MEDS ORDERED: cefTRIAXone(*) 1 GM ADVAN/BAG ONE (11:12)
--- NOTE | 2017-09-21 17:37 | ED ---
Luz Maria Hall Nilda, scribed for Celso Jernigan MD on 09/21/17 at 0852 . GI/ HPI - HPI Summary HPI Summary: This patient is a 62 year old F presenting to [facility] accompanied by with a chief complaint of a constant hot, erythematous, and painful lump on left groin that began 4 days ago. Pt states lump appeared after a bout of pelvic cramping (similar to menstrual cramps, resolved) and has been growing ( initially the size of pingpong ball but now the width of 3 fingers). The patient rates the pain 7/10 in severity. Symptoms aggravated by palpation and alleviated by nothing. Patient states she is scheduled for CT scan. - History of Current Complaint Chief Complaint: EDRashSkinAbscess Time Seen by Provider: 09/21/17 08:38 Stated Complaint: GROIN LUMP PAIN Hx Obtained From: Patient Onset/Duration: Started Days Ago, Still Present Timing: Constant Current Severity: Severe Pain Intensity: 7 Location of Pain: Groin - left Associated Signs and Symptoms: Positive: Other: - pelvic cramping (resolved) Aggravating Factor(s): Palpation Alleviating Factor(s): Nothing - Additional Pertinent History Primary Care Physician: [id number] - Allergy/Home Medications Allergies/Adverse Reactions: Allergies Allergy/AdvReac Type Severity Reaction Status Date / Time Sulfa (Sulfonamide Allergy Severe Rash And Verified 09/21/17 09:23 Antibiotics) Itching tramadol Allergy Severe SEIZURES Verified 09/21/17 09:23 hydrochlorothiazide Allergy Intermediate Hives Verified 09/21/17 09:23 ondansetron Allergy Intermediate Headache Verified 09/21/17 09:23 PMH/Surg Hx/FS Hx/Imm Hx Endocrine/Hematology History: Denies: Hx Diabetes Cardiovascular History: Reports: Hx Hypertension, Other Cardiovascular Problems/ Disorders - vericose veins Denies: Hx Pacemaker/ICD Respiratory History: Reports: Hx Chronic Obstructive Pulmonary Disease (COPD), Other Respiratory Problems/Disorders - early COPD History: Reports: Hx Kidney Stones - in left kidney Denies: Hx Renal Disease Musculoskeletal History: Reports: Hx Arthritis - RA, Hx Rheumatoid Arthritis - 10+ YEARS, Hx Back Problems - right side low back pain on occassion with flare , Hx Bursitis, Hx Fibromyalgia, Hx Orthopedic Injury, Hx Osteoporosis, Other Musculoskeletal History - RA, right hip cortisone injection 02/28/15 Sensory History: Reports: Hx Cataracts - right eye, Hx Contacts or Glasses Denies: Hx Hearing Aid Opthamlomology History: Reports: Hx Cataracts - right eye, Hx Contacts or Glasses Neurological History: Reports: Hx Headaches, Hx Migraine, Hx Seizures - one r/t reaction to tramadol, Other Neuro Impairments/Disorders - FIBROMYALGIA Psychiatric History: Denies: Hx Panic Disorder - Surgical History Surgery Procedure, Year, and Place: tubal,left knee scope, right totla hip, kidney stone removal, vericose veins,cataract righyt Hx Anesthesia Reactions: No Infectious Disease History: No Infectious Disease History: Denies: Traveled Outside the [place] in Last 30 Days - Family History Known Family History: Positive: Other - Colon CA positive to mother and sister; mother PE - Social History Alcohol Use: None Hx Substance Use: No Substance Use Type: Reports: None Substance Use Comment - Amount & Last Used: percocet Hx Tobacco Use: Yes Smoking Status (MU): Former Smoker Type: Cigarettes Amount Used/How Often: 2 ppd Length of Time of Smoking/Using Tobacco: 35 years Have You Smoked in the Last Year: No Review of Systems Positive: Abdominal Pain - cramping, resolved Positive: other - hot, erythematous painful lump on left groin All Other Systems Reviewed And Are Negative: Yes Physical Exam - Summary Physical Exam Summary: VITAL SIGNS: Reviewed. GENERAL: Patient is a well-developed and nourished female who is lying comfortable in the stretcher. Patient is not in any acute respiratory distress. HEAD AND FACE: No signs of trauma. No ecchymosis, hematomas or skull depressions. No sinus tenderness. EYES: PERRLA, EOMI x 2, No injected conjunctiva, no nystagmus. EARS: Hearing grossly intact. Ear canals and tympanic membranes are within normal limits. MOUTH: Oropharynx within normal limits. NECK: Supple, trachea is midline, no adenopathy, no JVD, no carotid bruit, no c- spine tenderness, neck with full ROM. CHEST: Symmetric, no tenderness at palpation LUNGS: Clear to auscultation bilaterally. No wheezing or crackles. CVS: Regular rate and rhythm, S1 and S2 present, no murmurs or gallops appreciated. ABDOMEN: Soft, non-tender. No signs of distention. No rebound no guarding, and no masses palpated. Bowel sounds are normal. EXTREMITIES: FROM in all major joints, no edema, no cyanosis or clubbing. NEURO: Alert and oriented x 3. No acute neurological deficits. Speech is normal and follows commands. SKIN: Dry and warm, Significant swollen lump in left pelvic area that is red, tender, and warm Triage Information Reviewed: Yes Vital Signs On Initial Exam: Initial Vitals Temp Pulse Resp BP Pulse Ox 98.6 F 75 18 139/83 96 09/21/17 08:25 09/21/17 08:25 09/21/17 08:25 09/21/17 08:25 09/21/17 08:25 Vital Signs Reviewed: Yes Diagnostics - Vital Signs Vital Signs Temp Pulse Resp BP Pulse Ox 09/21/17 08:41 78 96 09/21/17 08:39 141/78 09/21/17 08:25 98.6 F 75 18 139/83 96 - Laboratory Lab Results: Lab Results 09/21/17 09/21/17 09/21/17 Range/Units 08:57 08:57 08:57 WBC 5.7 (3.5-10.8) 10^3/ul RBC 4.27 (4.0-5.4) 10^6/ul Hgb 13.5 (12.0-16.0) g/dl Hct 40 (35-47) % MCV 93 (80-97) fL MCH 32 H (27-31) pg MCHC 34 (31-36) g/dl RDW 14 (10.5-15) % Plt Count 225 (150-450) 10^3/ul MPV 7 L (7.4-10.4) um3 Neut % (Auto) 63.1 (38-83) % Lymph % (Auto) 21.1 L (25-47) % [place] % (Auto) 13.5 H (1-9) % Eos % (Auto) 1.3 (0-6) % Baso % (Auto) 1.0 (0-2) % Absolute Neuts (auto) 3.6 (1.5-7.7) 10^3/ul Absolute Lymphs (auto) 1.2 (1.0-4.8) 10^3/ul Absolute Monos (auto) 0.8 (0-0.8) 10^3/ul Absolute Eos (auto) 0.1 (0-0.6) 10^3/ul Absolute Basos (auto) 0.1 (0-0.2) 10^3/ul Absolute Nucleated RBC 0 10^3/ul Nucleated RBC % 0.1 Sodium 137 (133-145) mmol/L Potassium 3.8 (3.5-5.0) mmol/L Chloride 102 (101-111) mmol/L Carbon Dioxide 29 (22-32) mmol/L Anion Gap 6 (2-11) mmol/L BUN 10 (6-24) mg/dL Creatinine 0.66 (0.51-0.95) mg/dL Est GFR ( Amer) 117.1 (>60) Est GFR (Non-Af Amer) 91.0 (>60) BUN/Creatinine Ratio 15.2 (8-20) Glucose 104 H (70-100) mg/dL Lactic Acid 1.1 (0.5-2.0) mmol/L Calcium 9.1 (8.6-10.3) mg/dL Total Bilirubin 0.90 (0.2-1.0) mg/dL AST 16 (13-39) U/L ALT 10 (7-52) U/L Alkaline Phosphatase 79 (34-104) U/L C-Reactive Protein 27.90 H (< 5.00) mg/L Total Protein 6.2 L (6.4-8.9) g/dL Albumin 3.9 (3.2-5.2) g/dL Globulin 2.3 (2-4) g/dL Albumin/Globulin Ratio 1.7 (1-3) Urine Color Urine Appearance Urine pH (5-9) Ur Specific [place] (1.010-1.030) Urine Protein (Negative) Urine Ketones (Negative) Urine Blood (Negative) Urine Nitrate (Negative) Urine Bilirubin (Negative) Urine Urobilinogen (Negative) Ur Leukocyte Esterase (Negative) Urine Glucose (Negative) 09/21/17 Range/Units 09:41 WBC (3.5-10.8) 10^3/ul RBC (4.0-5.4) 10^6/ul Hgb (12.0-16.0) g/dl Hct (35-47) % MCV (80-97) fL MCH (27-31) pg MCHC (31-36) g/dl RDW (10.5-15) % Plt Count (150-450) 10^3/ul MPV (7.4-10.4) um3 Neut % (Auto) (38-83) % Lymph % (Auto) (25-47) % [place] % (Auto) (1-9) % Eos % (Auto) (0-6) % Baso % (Auto) (0-2) % Absolute Neuts (auto) (1.5-7.7) 10^3/ul Absolute Lymphs (auto) (1.0-4.8) 10^3/ul Absolute Monos (auto) (0-0.8) 10^3/ul Absolute Eos (auto) (0-0.6) 10^3/ul Absolute Basos (auto) (0-0.2) 10^3/ul Absolute Nucleated RBC 10^3/ul Nucleated RBC % Sodium (133-145) mmol/L Potassium (3.5-5.0) mmol/L Chloride (101-111) mmol/L Carbon Dioxide (22-32) mmol/L Anion Gap (2-11) mmol/L BUN (6-24) mg/dL Creatinine (0.51-0.95) mg/dL Est GFR ( Amer) (>60) Est GFR (Non-Af Amer) (>60) BUN/Creatinine Ratio (8-20) Glucose (70-100) mg/dL Lactic Acid (0.5-2.0) mmol/L Calcium (8.6-10.3) mg/dL Total Bilirubin (0.2-1.0) mg/dL AST (13-39) U/L ALT (7-52) U/L Alkaline Phosphatase (34-104) U/L C-Reactive Protein (< 5.00) mg/L Total Protein (6.4-8.9) g/dL Albumin (3.2-5.2) g/dL Globulin (2-4) g/dL Albumin/Globulin Ratio (1-3) Urine Color Straw Urine Appearance Clear Urine pH 8.0 (5-9) Ur Specific [place] 1.001 L (1.010-1.030) Urine Protein Negative (Negative) Urine Ketones Negative (Negative) Urine Blood Negative (Negative) Urine Nitrate Negative (Negative) Urine Bilirubin Negative (Negative) Urine Urobilinogen Negative (Negative) Ur Leukocyte Esterase Negative (Negative) Urine Glucose Negative (Negative) Result Diagrams: 09/21/17 08:57 09/21/17 08:57 Lab Statement: Any lab studies that have been ordered have been reviewed, and results considered in the medical decision making process. - Additional Comments Diagnostic Additional Comments: Soft Tissue US, per radiologist, Soft tissue edema with heterogeneous echotexture evident subjacent to the LEFT groin region of skin redness and clinical concern. No loculated abscess collection evident. No hernia visualized. Two LEFT inguinal lymph nodes lateral to the region of skin redness are visualized within normal size limits measuring up to 1.4 x 0.6 x 0.6 and 0.6 x 0.[address] Jernigan has reviewed this radiology report. Re-Evaluation - Re-Evaluation First Eval Re-Evaluation Time: 11:08 Comment: Reviewed imaging results and D/C plan with pt. GIGU Course/Dx - Course Assessment/Plan: This patient is a 62 year old F presenting to [facility] accompanied by with a chief complaint of a constant hot, erythematous, and painful lump on left groin that began 4 days ago. Pt states lump appeared after a bout of pelvic cramping (similar to menstrual cramps, resolved) and has been growing (initially the size of pingpong ball but now the width of 3 fingers ). The patient rates the pain 7/10 in severity. Symptoms aggravated by palpation and alleviated by nothing. Patient states she is scheduled for CT scan. Test results without significant abnormalities except CRP of 27.90. UA is negative for UTI. Soft Tissue US, per radiologist, reveals soft tissue edema with heterogeneous echotexture evident subjacent to the LEFT groin region of skin redness and clinical concern. No loculated abscess collection evident. No hernia visualized. Two LEFT inguinal lymph nodes lateral to the region of skin redness are visualized within normal size limits measuring up to 1.4 x 0.6 x 0.6 and 0.6 x 0.[address] Jernigan has reviewed this radiology report. Since the US shows only cellulitis and no abscess the patient was given Rocephin, Morphine and Fentanyl for the pain. I discussed findings and tests with pt and advised follow up with PCP. I explained to the pt that there is no abscess and will treat the cellulitis with only abx. I also gave instructions to return to the ED if she experiences increases in pain or swelling. Pt understands and agrees to plan. - Diagnoses Differential Diagnoses - Female: Other - Cellulitis, Abscess Provider Diagnoses: Cellulitis Discharge - Discharge Plan Condition: Stable Disposition: HOME Prescriptions: Cephalexin CAP* [Keflex CAP*] 500 mg PO QID #40 cap HYDROcodone/ACETAMIN 5-325 MG* [[place] 5-325 TAB*] 1 tab PO Q6H PRN #12 tab MDD 4 PRN Reason: Pain Ibuprofen TAB* [Motrin TAB* 600 MG] 600 mg PO Q8H PRN #30 tab PRN Reason: Pain Patient Education Materials: Cellulitis (ED) Referrals: Miguel Lucas MD [Primary Care Provider] - 3 Days Additional Instructions: RETURN TO THE EMERGENCY DEPARTMENT FOR CHANGING OR WORSENING SYMPTOMS. The documentation as recorded by the Luz Maria woods Nilda accurately reflects the service I personally performed and the decisions made by me, Celso Jernigan MD.
== END 2017-09-21 11:23 | disposition home or self-care (01) ==
LOC: ED 08:20
DX: L03.314 Cellulitis of groin (principal); R10.9 Unspecified abdominal pain; Z87.891 Personal history of nicotine dependence
CPT/HCPCS: 36415; 80053; 81003; 83605; 85025; 86140; 96374; 96375; 99283; J0696; J1885; J2270; J2765; J3010

== ENCOUNTER 2018-02-08 11:39 | Day surgery (SDC) | payer MEDICARE, BC ==
[~2018-02-08 11:39] MED LIST: Buffered Lidocaine 0.9% SYRIN* 5 ML/SYR SYRINGE INTRADERM ONE
[2018-02-08] MEDS ORDERED: Povidone Iodine 5% OPTH* 30 ML BTL ONE (13:52)
[2018-02-08] MEDS ORDERED: Phenylephrine 2.5% OPTH.SOL* 2 ML BTL ONE (13:52)
[2018-02-08] MEDS ORDERED: Proparacaine 0.5% OPHTH.SOL* 15 ML BTL ONE (13:52)
[2018-02-08] MEDS ORDERED: Neomycin/Polymy/Dex OPTH.SUSP* MAXITROL 0.1% 5 ML ONE (13:52)
[2018-02-08] MEDS ORDERED: acetaZOLAMIDE TAB* 250 MG ONE (13:52)
[2018-02-08] MEDS ORDERED: Ketorolac 0.5% OPHTH (NF) 0.5 % 5 ML BTL ONE (13:52)
[2018-02-08] MEDS ORDERED: Lidocaine 2% EPI 1:200000 MPF*10-20 ML VIAL ONE (13:52)
[2018-02-08] MEDS ORDERED: Cyclopentolate 1% OPTH.SOL* 2 ML BTL ONE (13:52)
[2018-02-08] MEDS ORDERED: Lidocaine 1%* 5 ML VIAL ONE (13:52)
[2018-02-08] MEDS ORDERED: fentaNYL* 50 MCG/ML 2 ML VIAL (100 MCG VIAL) ONE (14:42)
[2018-02-08] MEDS ORDERED: Midazolam* 1 MG/ML 2 ML VIAL (2 MG) ONE (14:42)
[2018-02-08] MEDS ORDERED: Propofol* 10 MG/ML 20 ML BTL IV PUSH ONE (14:51)
[2018-02-08] MEDS ORDERED: Lidocaine 2% MPF* 2 ML VIAL ONE (14:51)
[2018-02-08 15:27] VITALS: BP 131/82
--- NOTE | 2018-02-08 15:48 | OP ---
DATE OF OPERATION: 02/08/2018. DATE OF : 1955. SURGEON: Praveen Landrum M.D. PREOPERATIVE DIAGNOSIS: Cataract left eye. POSTOPERATIVE DIAGNOSIS: Cataract left eye. OPERATIVE PROCEDURE: Extracapsular cataract extraction with intraocular lens implant left eye. PROCEDURE: The patient was brought to the operating room after being given 1/2% Alcaine with epineph rine drops in the preoperative area. The eye was prepped and draped in the usual sterile fashion. S terile drape and eyelid speculum were placed. Again, topical 1/2% Alcaine with epinephrine was given . A paracentesis incision was made at the 3 o'clock position with the No.75 blade. Clear cornea inc ision 2.2 x 2.2-mm was created at the 6 o'clock position starting at the anterior limbus using the 2. 2-mm keratome. The anterior chamber was irrigated with 0.4 mL of 1% non-preservative intracameral li docaine and filled with DisCoVisc. A capsulorrhexis was completed using the cystotome and the Utrata forceps. Hydrodissection was performed with balanced salt solution. The lens nucleus was removed wi th the Phacoemulsification handpiece without incident. Cortex was removed with the irrigation-aspira tion handpiece. The capsular bag was re-inflated using DisCoVisc and an [id number] implant was insert ed with the shooter. The irrigation-aspiration handpiece was used to remove all residual DisCoVisc. The eye was refilled with balanced salt solution and the wound checked and found to be watertight. Topical Maxitrol drops were given. [id number]/[facility] #: [id number]
== END 2018-02-08 15:13 | disposition home or self-care (01) ==
LOC: OREAST 11:39
PROVIDERS: ATTEND Specialist
DX: H25.12 Age-related nuclear cataract, left eye (principal); Z79.899 Other long term (current) drug therapy; M06.9 Rheumatoid arthritis, unspecified; I10 Essential (primary) hypertension; M81.0 Age-related osteoporosis without current pathological fracture; Z87.891 Personal history of nicotine dependence; J44.9 Chronic obstructive pulmonary disease, unspecified; E78.00 Pure hypercholesterolemia, unspecified; F11.90 Opioid use, unspecified, uncomplicated; G89.29 Other chronic pain; G43.909 Migraine, unspecified, not intractable, without status migrainosus
CPT/HCPCS: A9270-GY; J2250; J2704; J3010; V2632